=== PATIENT | female | born 2000 ===

== ENCOUNTER 2023-03-08 12:34 | Emergency (ER) | payer OTHER, SELFPAY ==
[2023-03-08 12:38] VITALS: BP 149/97; PULSE 100; RESP 18; TEMP 36.6; O2SAT 100; BMI 37.8
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
[2023-03-08 15:53] VITALS: BP 135/84; PULSE 86; RESP 19; TEMP 36.6; O2SAT 100
== END 2023-03-08 15:56 | disposition home or self-care (01) ==
PROVIDERS: Emergency Provider Emergency Medicine Emergency Medical Services; PCP Registered Nurse
DX: S13.4XXA Sprain of ligaments of cervical spine, initial encounter (principal); M54.2 Cervicalgia; R51.9 Headache, unspecified; V43.52XA Car driver injured in collision with other type car in traffic accident, initial encounter; Y93.9 Activity, unspecified; Y92.410 Unspecified street and highway as the place of occurrence of the external cause; Y99.9 Unspecified external cause status; Z79.899 Other long term (current) drug therapy
CPT/HCPCS: 99283; 99284

== ENCOUNTER 2023-03-12 11:39 | Outpatient (REF) | payer MEDICAID, SELFPAY ==
[2023-03-12 14:30] LABS: Syphilis Screen Nonreactive (Nonreactive)
[2023-03-13 04:22] LABS: HIV AB/AG Nonreactive (Nonreactive); HIV Num 1 0.06 S/CO (0.00-0.99)
[2023-03-13 05:42] LABS: CT PCR DETECTED (Not Detect.); NG PCR NOT DETECTED (Not Detect.)
[2023-03-13 14:17] LABS: BV Int Neg Control Negative (Negative); BV Int Pos Control Positive (Positive)
== END 2023-03-12 11:40 | disposition home or self-care (01) ==
LOC: HO.HHCL 11:39
PROVIDERS: Visit Provider Advanced Practice Midwife
DX: Z11.3 Encounter for screening for infections with a predominantly sexual mode of transmission (principal); Z11.4 Encounter for screening for human immunodeficiency virus [HIV]
CPT/HCPCS: 0353U; 36415; 86780; 87389; 87480; 87510; 87660

== ENCOUNTER 2023-05-31 15:55 | Outpatient (REF) | payer MEDICAID, SELFPAY ==
[2023-05-31 18:33] LABS: CT PCR NOT DETECTED (Not Detect.); NG PCR NOT DETECTED (Not Detect.)
== END 2023-05-31 15:56 | disposition home or self-care (01) ==
LOC: HO.HHCLNP 15:55
PROVIDERS: Visit Provider Advanced Practice Midwife
DX: Z11.3 Encounter for screening for infections with a predominantly sexual mode of transmission (principal)
CPT/HCPCS: 0353U

== ENCOUNTER 2023-06-19 16:11 | Outpatient (REF) | payer MEDICAID, SELFPAY ==
[2023-06-21 15:48] LABS: C. trachomatis RNA TMA DETECTED (NOT DETECTED); Candida glabrata RNA NOT DETECTED (NOT DETECTED); Candida species RNA DETECTED (NOT DETECTED); N. gonorrhoeae RNA TMA NOT DETECTED (NOT DETECTED); Trichomonas vaginalis RNA NOT DETECTED (NOT DETECTED)
== END 2023-06-19 16:12 | disposition home or self-care (01) ==
LOC: HO.HHCLNP 16:11
PROVIDERS: Visit Provider Internal Medicine
DX: N76.0 Acute vaginitis (principal); B96.89 Other specified bacterial agents as the cause of diseases classified elsewhere
CPT/HCPCS: 36415; 81513; 87481; 87491; 87591; 87661

== ENCOUNTER 2023-06-21 16:35 | Outpatient (REF) | payer MEDICAID, SELFPAY ==
[2023-06-22 08:06] LABS: Syphilis Screen Nonreactive (Nonreactive)
[2023-06-22 08:10] LABS: HIV AB/AG Nonreactive (Nonreactive); HIV Num 1 0.05 S/CO (0.00-0.99)
== END 2023-06-21 16:36 | disposition home or self-care (01) ==
LOC: HO.HHCL 16:35
PROVIDERS: Visit Provider Advanced Practice Midwife
DX: Z11.3 Encounter for screening for infections with a predominantly sexual mode of transmission (principal)
CPT/HCPCS: 36415; 86780; 87389

== ENCOUNTER 2023-06-22 14:06 | Outpatient (REF) | payer MEDICAID, SELFPAY ==
[2023-06-22 16:09] LABS: MANUAL DIFF FLAG NO
[2023-06-22 16:18] LABS: Basophils Percent Auto 0.4 % (0-2); Eosinophils Absolute Auto 0.2 X10*3/uL (0.0-0.4); Hematocrit 40.9 % (37.0-47.0); Hemoglobin 13.5 g/dl (12.0-16.0); Imm Gran Abs Auto 0.02 X10*3/uL (0.00-0.03); Imm Gran Pct Auto 0.2 % (0.0-0.4); Lymphocytes Absolute Auto 1.7 X10*3/uL (1.2-4.9); Lymphocytes Percent Auto 17.9 % (20-40); Mean Corpuscular Hemoglobin 30.8 pg (27.0-33.0); Mean Corpuscular Volume 93.2 fL (80.0-98.0); Mean Platelet Volume 10.3 fL (9.4-12.3); Monocytes Absolute Auto 0.7 X10*3/uL (0.1-1.2); Monocytes Percent Auto 7.8 % (2-11); Neutrophils Absolute Auto 6.8 x10*3/uL (2.0-8.3); Neutrophils Percent Auto 71.7 % (45-73); Platelet Count 310 X10*3/uL (160-400); Red Blood Count 4.39 X10*6/uL (4.20-5.50); Red Cell Distribution Width 11.9 % (11.0-16.0); White Blood Count 9.5 X10*3/uL (4.8-10.8)
[2023-06-22 16:28] LABS: Anion Gap 10 (12-20); Blood Urea Nitrogen 14 mg/dL (9-16); Carbon Dioxide 25 mmol/L (22-29); Chloride 110 mmol/L (96-108); Estimated Glomerular Filt Rate > 60; Glucose Random 73 mg/dL (60-115); Potassium 4.1 mmol/L (3.3-5.1); Sodium 141 mmol/L (135-145)
== END 2023-06-22 14:07 | disposition home or self-care (01) ==
LOC: HO.HHCL 14:06
PROVIDERS: Visit Provider Registered Nurse
DX: R19.7 Diarrhea, unspecified (principal)
CPT/HCPCS: 36415; 80048; 85025

== ENCOUNTER 2023-07-20 17:15 | Outpatient (REF) | payer MEDICAID, SELFPAY ==
[2023-07-20 22:08] LABS: CDiff Gene PCR NEGATIVE (Negative)
== END 2023-07-20 17:16 | disposition home or self-care (01) ==
LOC: HO.HHCLNP 17:15
PROVIDERS: Visit Provider Registered Nurse
DX: R19.7 Diarrhea, unspecified (principal)
CPT/HCPCS: 87493

== ENCOUNTER 2023-09-10 09:13 | Emergency (ER) | payer MEDICAID, SELFPAY ==
[2023-09-10 09:23] VITALS: BP 131/82; PULSE 92; RESP 16; TEMP 36.1; O2SAT 97; BMI 37.1
--- NOTE | 2023-09-10 09:33 | ED.GENADULT ---
HPI - General Adult General Chief complaint: Skin/Abscess/Foreign Body Stated complaint: lump on l side of neck Time Seen by Provider: 09/10/23 09:28 Source: patient and RN notes reviewed Mode of arrival: ambulatory Limitations: no limitations History of Present Illness HPI narrative: This is a 23-year-old female, with a history of asthma, presenting to the emergency department complaints of lump to left side of neck since yesterday. Patient states that she noticed a painless lump to her left side of her neck yesterday, she states that this morning at increased in size. Denies history of similar symptoms in the past. She does report that she had night sweats over the weekend. She does report that the pain worsens with deep palpation. Denies any recent changes in weight. She states her mom had a similar lump in her neck and was diagnosed with cancer there were she is concerned. She denies any recent fevers, chills, chest pain, shortness breast, abdominal pain, nausea, vomiting or diarrhea. Denies sore throat or ear pain. Denies dental pain. No other complaints or concerns at this time. MD complaint: Neck lump Onset (ago): day(s) Location: neck Radiation: non-radiation Relieving factors: none Exacerbating factors: none Associated symptoms: denies other symptoms Treatments prior to arrival: none Related Data Previous Rx's Medication Instructions Recorded cyclobenzaprine 10 mg tablet 10 mg PO TID PRN muscle spasm #14 03/08/23 tabs ibuprofen 600 mg tablet 600 mg PO Q8H PRN pain #14 tabs 03/08/23 lidocaine 5 % topical patch 1 patch topical DAILY #15 ea 03/08/23 Allergies Allergy/AdvReac Type Severity Reaction Status Date / Time No Known Allergies Allergy Unverified 04/29/20 16:55 [No Known Allergies*] Review of Systems Review of Systems: Yes all other systems are reviewed and are negative Constitutional: Constitutional: Reports as per [facility] Past Medical History Attestation statement: The following information was validated with the patient. Social History Social History Advance Directives: No Advance Directives Information Provided: No Physical Exam ED Vital Signs: Vital Signs - 24 hr 09/10/23 09:23 Temperature 97.0 F Pulse Rate 92 Respiratory Rate 16 Blood Pressure 131/82 Pulse Oximetry 97 Oxygen Delivery Method Room Air BMI result Body Mass Index 37.1 Const General: cooperative, comfortable and no acute distress Orientation/consciousness: patient oriented x3 Limitations: no limitations HENMT Head: Yes normal to inspection, Yes normocephalic and Yes atraumatic Ears: hearing grossly normal bilaterally General nose exam: Normal external nose present Face and sinus: Yes normal facial exam Mouth: Normal oral and palatal mucosa present, oropharynx normal and moist mucous membranes Throat: Yes posterior oropharynx normal Eyes General: appearance normal, both eyes and all related structures Eyelids: Yes eyelids normal Conjunctivae: conjunctivae normal Sclerae: sclerae normal Pupils: Equal, round and reactive pupils present EOM: EOMs intact bilaterally Neck Other: Left anterior cervical palpable lymph node noted, mobile, nontender Neck: Yes normal visual inspection, Yes full ROM and Yes no lymphadenopathy Lymphatic: no lymphadenopathy noted Chest Chest palpation & inspection: normal inspection of the chest Resp Effort & Inspection: normal respiratory effort and able to speak in complete sentences Auscultation: clear to auscultation bilaterally, no crackles, no rales, no rhonchi and no wheezes Cardio Rate: regular rate Rhythm: regular rhythm Heart sounds: S1 normal heart sound present and S2 normal heart sound present GI Inspection: Yes normal to inspection Skin General skin exam: no rashes or lesions noted Trauma: no lacerations or abrasions Wounds: no wounds Neuro General: patient oriented x3 and moves all extremities Cranial nerves: Yes Equal, round and reactive pupils present Extrem General: Yes normal to inspection Right upper extremity: normal to inspection Left upper extremity: normal to inspection Right lower extremity: normal to inspection Left lower extremity: normal to inspection Course Reevaluation(s) Reevaluation #1: Labs return, patient has mild elevated transaminases, no previous noted for comparison, mild hyperglycemia however patient is nonfasting. TSH is within normal limits, she is not . CBC unremarkable. Discussed findings with patient, advised to closely monitor area and follow-up with primary care physician regarding symptoms. This is likely a lymph node however advised patient to closely monitor this and if any changes occur, to immediately seek emergent care or follow-up with PCP. She understands agrees with plan. Patient stable for discharge. Time: 10:45 Medical Decision Making Medical Decision Making MDM Narrative: This is a 23-year-old female, with a history of asthma, presenting to the emergency department with complaints of lump to left side of neck since yesterday. On arrival, vital signs within normal limits, she is speaking full sentences under no acute distress. Patient does have a palpable anterior lymph node noted, non indurated, no erythema or warmth to suggest cellulitis or abscess. Mother has a history of neck mass that resulted into cancer. Patient reports that she did have night sweats several days ago however reports that this is atypical however. Denies any recent change in weight. She is otherwise feeling well. No headaches, dizziness, dental pain, ear pain, sore throat, fevers, chills, abdominal pain, nausea, vomiting or diarrhea. No other complaints or concerns at this time. Differential Diagnosis Differential Diagnoses: The differential diagnosis associated with the presentation includes Lymphadenopathy, abscess, mass Admission/Observation Consideration of admission/observation: Escalation of care including admission/observation considered Lab Data MDM Lab Attestation statement: I reviewed the patient's lab results. 09/10/23 09:43 09/10/23 09:43 Labs: Lab Results 09/10/23 Range/Units 09:43 WBC 6.0 (4.8-10.8) X10*3/uL RBC 4.37 (4.20-5.50) X10*6/uL Hgb 13.5 (12.0-16.0) g/dl Hct 39.8 (37.0-47.0) % MCV 91.1 (80.0-98.0) fL MCH 30.9 (27.0-33.0) pg MCHC 33.9 (31.0-35.0) g/dl RDW 11.9 (11.0-16.0) % Plt Count 172 D (160-400) X10*3/uL MPV 10.0 (9.4-12.3) fL Immature Gran % (Auto) 0.3 (0.0-0.4) % Neut % (Auto) 49.1 (45-73) % Lymph % (Auto) 44.2 H (20-40) % [facility] % (Auto) 5.3 (2-11) % Eos % (Auto) 0.3 (0-4) % Baso % (Auto) 0.8 (0-2) % Lymph # (Auto) 2.7 (1.2-4.9) X10*3/uL [facility] # (Auto) 0.3 (0.1-1.2) X10*3/uL Eos # (Auto) 0.0 (0.0-0.4) X10*3/uL Baso # (Auto) 0.1 (0.0-0.2) X10*3/uL Abs Immat Gran (auto) 0.02 (0.00-0.03) X10*3/uL Absolute Neuts (auto) 3.0 (2.0-8.3) x10*3/uL Absolute Nucleated RBC 0.000 (0.0-0.012) X10*3/uL Nucleated RBC % (auto) 0.0 (0.0-0.2) /100WBC Smear Tech's Comments VERIFIED Sodium 139 (135-145) mmol/L Potassium 3.6 (3.3-5.1) mmol/L Chloride 108 (96-108) mmol/L Carbon Dioxide 22 (22-29) mmol/L Anion Gap 13 (12-20) BUN 13 (9-16) mg/dL Creatinine 0.80 (0.5-1.4) mg/dL Estim Creat Clear Calc 110.9 Estimated GFR > 60 Random Glucose 119 H (60-115) mg/dL Calcium 8.9 (8.4-10.2) mg/dL Total Bilirubin 0.4 (0.0-1.0) mg/dL AST 34 H (5-31) U/L ALT 51 H (0-31) U/L Alkaline Phosphatase 69 (39-117) U/L Total Protein 7.1 (6.5-8.0) g/dL Albumin 3.9 (3.5-5.0) g/dL TSH 0.93 (0.32-4.0) uIU/mL Beta HCG, Quant < 2 mIU/mL Radiology Impression Discussion of test interpretation with radiology: I have reviewed the radiologist's reading. External Record Review External record reviewed: Inpatient record, Office record, Outpatient record, Prior outpatient labs, Prior outpatient radiology, Primary care record and Outside ED record Discharge Plan Discharge Clinical Impression: Lymphadenopathy, cervical Patient Disposition: Home, Self-Care Instructions: Lymphadenopathy (ED) Additional Instructions: You were seen in the emergency department due to swelling in your left side of your neck. This is likely a swollen node. This times can happen at random occurrences or the start of a infection. You have no signs of infection at this time. Your blood work was reassuring. You do have mild elevation in your liver enzymes, please have these repeated in 2 weeks to ensure improvement. You can have this done through her primary care physician's office. I also want you to follow-up with your primary care physician regarding this visit, please call today to make an appointment. Keep a close eye on region, if your symptoms get worse, you have increased swelling, difficulty breathing, difficulty swallowing, chest pain or shortness of breath, please return for re-evaluation. Prescriptions: No Action cyclobenzaprine 10 mg tablet 10 mg PO TID PRN (Reason: muscle spasm) Qty: 14 0RF ibuprofen 600 mg tablet 600 mg PO Q8H PRN (Reason: pain) Qty: 14 0RF lidocaine 5 % adhesive patch,medicated 1 patch topical DAILY Qty: 15 0RF Rx Instructions: leave on most painful area for up to 12 hrs
[2023-09-10 09:54] LABS: Basophils Absolute Auto 0.1 X10*3/uL (0.0-0.2); Basophils Percent Auto 0.8 % (0-2); Eosinophils Percent Auto 0.3 % (0-4); Hematocrit 39.8 % (37.0-47.0); Hemoglobin 13.5 g/dl (12.0-16.0); Imm Gran Abs Auto 0.02 X10*3/uL (0.00-0.03); Imm Gran Pct Auto 0.3 % (0.0-0.4); Lymphocytes Absolute Auto 2.7 X10*3/uL (1.2-4.9); Lymphocytes Percent Auto 44.2 % (20-40); MANUAL DIFF FLAG SCAN; Mean Corpuscular HGB Conc 33.9 g/dl (31.0-35.0); Mean Corpuscular Hemoglobin 30.9 pg (27.0-33.0); Mean Corpuscular Volume 91.1 fL (80.0-98.0); Monocytes Absolute Auto 0.3 X10*3/uL (0.1-1.2); Monocytes Percent Auto 5.3 % (2-11); Neutrophils Percent Auto 49.1 % (45-73); Platelet Count 172 X10*3/uL (160-400); Red Blood Count 4.37 X10*6/uL (4.20-5.50); Red Cell Distribution Width 11.9 % (11.0-16.0); SCAN SMEAR FLAG 1
[2023-09-10 10:08] LABS: Alanine Aminotransferase 51 U/L (0-31); Albumin Level 3.9 g/dL (3.5-5.0); Alkaline Phosphatase 69 U/L (39-117); Anion Gap 13 (12-20); Aspartate Amino Transferase 34 U/L (5-31); Bilirubin Total 0.4 mg/dL (0.0-1.0); Blood Urea Nitrogen 13 mg/dL (9-16); Calcium 8.9 mg/dL (8.4-10.2); Carbon Dioxide 22 mmol/L (22-29); Chloride 108 mmol/L (96-108); Creatinine Clr Calc Pharmacy 110.9; Estimated Glomerular Filt Rate > 60; Glucose Random 119 mg/dL (60-115); Potassium 3.6 mmol/L (3.3-5.1); Sodium 139 mmol/L (135-145); Total Protein 7.1 g/dL (6.5-8.0)
[2023-09-10 10:20] LABS: SLIDE REVIEW VERIFIED
[2023-09-10 10:31] LABS: HCG Quantitative < 2 mIU/mL; TSH reflex Free T4 0.93 uIU/mL (0.32-4.0)
== END 2023-09-10 11:16 | disposition home or self-care (01) ==
PROVIDERS: Physician Assistant Medical; Emergency Provider Emergency Medicine; PCP Registered Nurse
DX: R59.0 Localized enlarged lymph nodes (principal)
CPT/HCPCS: 36415; 80053; 84443; 84702; 85025; 99282; 99283

== ENCOUNTER 2023-09-17 20:24 | Outpatient (REF) | payer MEDICAID, SELFPAY ==
[2023-09-20 00:08] LABS: C. trachomatis RNA TMA NOT DETECTED (NOT DETECTED); Candida glabrata RNA NOT DETECTED (NOT DETECTED); Candida species RNA DETECTED (NOT DETECTED); N. gonorrhoeae RNA TMA NOT DETECTED (NOT DETECTED); Trichomonas vaginalis RNA NOT DETECTED (NOT DETECTED)
== END 2023-09-17 20:25 | disposition home or self-care (01) ==
LOC: HO.HHCLNP 20:24
PROVIDERS: Visit Provider Registered Nurse
DX: R59.1 Generalized enlarged lymph nodes (principal)
CPT/HCPCS: 36415; 81513; 87481; 87491; 87591; 87661

== ENCOUNTER 2023-09-18 15:58 | Outpatient (REF) | payer MEDICAID, SELFPAY ==
[2023-09-18 17:34] LABS: Basophils Absolute Auto 0.1 X10*3/uL (0.0-0.2); Basophils Percent Auto 1.1 % (0-2); Eosinophils Percent Auto 0.3 % (0-4); Hematocrit 36.5 % (37.0-47.0); Hemoglobin 12.5 g/dl (12.0-16.0); Imm Gran Abs Auto 0.03 X10*3/uL (0.00-0.03); Imm Gran Pct Auto 0.3 % (0.0-0.4); Lymphocytes Absolute Auto 5.8 X10*3/uL (1.2-4.9); Lymphocytes Percent Auto 63.5 % (20-40); MANUAL DIFF FLAG SCAN; Mean Corpuscular HGB Conc 34.2 g/dl (31.0-35.0); Mean Corpuscular Hemoglobin 31.3 pg (27.0-33.0); Mean Corpuscular Volume 91.5 fL (80.0-98.0); Mean Platelet Volume 10.5 fL (9.4-12.3); Monocytes Absolute Auto 0.6 X10*3/uL (0.1-1.2); Neutrophils Absolute Auto 2.6 x10*3/uL (2.0-8.3); Neutrophils Percent Auto 28.8 % (45-73); Platelet Count 203 X10*3/uL (160-400); Red Blood Count 3.99 X10*6/uL (4.20-5.50); Red Cell Distribution Width 12.2 % (11.0-16.0); SCAN SMEAR FLAG 1; White Blood Count 9.1 X10*3/uL (4.8-10.8)
[2023-09-18 17:43] LABS: Alanine Aminotransferase 54 U/L (0-31); Albumin Level 3.4 g/dL (3.5-5.0); Alkaline Phosphatase 82 U/L (39-117); Anion Gap 11 (12-20); Aspartate Amino Transferase 38 U/L (5-31); Bilirubin Total 0.3 mg/dL (0.0-1.0); Blood Urea Nitrogen 13 mg/dL (9-16); Calcium 8.4 mg/dL (8.4-10.2); Carbon Dioxide 23 mmol/L (22-29); Chloride 107 mmol/L (96-108); Estimated Glomerular Filt Rate > 60; Glucose Random 92 mg/dL (60-115); Potassium 3.9 mmol/L (3.3-5.1); Sodium 137 mmol/L (135-145)
[2023-09-18 18:40] LABS: SLIDE REVIEW VERIFIED
[2023-09-19 07:52] LABS: HBS Num1 136.52 mIU/mL (0-7.99); HBc Num1 0.18 S/CO (0.00-0.79); HBsAGNum1 0.42 S/CO (0.00-0.99); HIV AB/AG Nonreactive (Nonreactive); HIV Num 1 0.06 S/CO (0.00-0.99); Hepatitis A Antibody IgM 0.21 Index (0-0.79); Hepatitis B Core Antibody Nonreactive (Nonreactive); Hepatitis B Surface Antigen Negative (Negative); ~HepC Num1 0.34 S/CO (0.00-0.79); ~Hepatitis A Antibody IgM Nonreactive (Nonreactive); ~Hepatitis B Surface Antibody REACTIVE (Nonreactive); ~Hepatitis C Antibody Nonreactive (Nonreactive)
[2023-09-19 17:54] LABS: RPR Rapid Plasma Reagin NON-REACTIVE (NON-REACTIVE)
== END 2023-09-18 15:59 | disposition home or self-care (01) ==
LOC: HO.HHCL 15:58
PROVIDERS: Visit Provider Registered Nurse
DX: Z11.4 Encounter for screening for human immunodeficiency virus [HIV] (principal); R59.1 Generalized enlarged lymph nodes
CPT/HCPCS: 36415; 80053; 85025; 86592; 86704; 86706; 86709; 86803; 87340; 87389

== ENCOUNTER 2023-09-24 11:57 | Outpatient (REF) | payer MEDICAID, SELFPAY ==
[2023-09-27 14:03] LABS: TS Negative Control Passed; TS Panel A 0; TS Panel B 1; TS Positive Control Passed; TSpotTB Negative (Negative)
== END 2023-09-24 11:58 | disposition home or self-care (01) ==
LOC: HO.HHCL 11:57
PROVIDERS: Visit Provider Registered Nurse
DX: R59.1 Generalized enlarged lymph nodes (principal)
CPT/HCPCS: 36415; 86481

== ENCOUNTER 2023-09-24 14:33 | Outpatient (REF) | payer MEDICAID, SELFPAY ==
--- NOTE | ~2023-09-24 | US_ITS ---
EXAMINATION: US SOFT TISSUE HEAD/NECK CLINICAL INFORMATION: 23-year-old female with persistent left anterior cervical lymphadenopathy. COMPARISON: None available. TECHNIQUE: Linear transducer rodriguez-scale and color Doppler examination of the area indicated by patient left neck level II with comparison right neck level II. Targeted ultrasound images were obtained by the retail training manager of the area of concern as indicated by the patient in the left neck at level 2. Radiologist was not in attendance. Images were later provided for interpretation. FINDINGS: Multiple lymph nodes in the area of concern indicated by the patient and the left neck at level II, largest 3.8 x 1.5 x 2.1 cm and 3.5 x 1.1 x 1.9 cm are atypical with cortical thickening and echogenic joce. Lymph nodes in the corresponding area in the right neck at level II, largest 4.4 x 1.0 x 2.0 cm and 2.8 x 1.0 x 2.3 cm, appear atypical with cortical thickening and echogenic joce. US/US soft tiss head and/or neck IMPRESSION: Multiple atypical lymph nodes in the area of concern indicated by the patient in the left neck at level II. Atypical lymph nodes also identified in the corresponding area in the right neck at level II. Decisions regarding further management including possible additional imaging with contrast enhanced CT scan, treatment and/or biopsy should be based on the clinical assessment. Recommend follow-up ultrasound in 3 months.
== END 2023-09-24 14:34 | disposition home or self-care (01) ==
LOC: HO.HMGCX 14:33
PROVIDERS: PCP Registered Nurse; Visit Provider Registered Nurse
DX: R59.1 Generalized enlarged lymph nodes (principal)
CPT/HCPCS: 36415; 76536; 86481

== ENCOUNTER 2023-10-12 07:46 | Outpatient (REF) | payer MEDICAID, SELFPAY ==
--- NOTE | ~2023-10-12 | US_ITS ---
EXAMINATION: US ABDOMEN COMPLETE CLINICAL INFORMATION: 23-year-old female with persistent liver enzyme elevation. COMPARISON: None available. TECHNIQUE: Real-time imaging of the abdominal viscera. Limited visualization due to bowel gas. FINDINGS: PANCREAS: Limited visualization of pancreatic tail and head. Imaged portion of pancreatic body is unremarkable. ABDOMINAL AORTA: Unremarkable. INFERIOR VENA CAVA: Visualized portions are normal. LIVER: Mildly increased hepatic parenchymal heterogeneity and echogenicity could be associated with hepatocellular disease/hepatic steatosis and substantially limits visualization. Correlation with liver function tests and clinical exam recommended to determine further management. GALLBLADDER: No gallstones. No gallbladder wall thickening. COMMON BILE DUCT: Normal in caliber measuring 0.4 cm in diameter. RIGHT KIDNEY: No hydronephrosis. No renal calculi. Limited visualization. The kidney measures 10.5 cm in maximum dimension. LEFT KIDNEY: Medial midpole 1.1 x 1.2 x 1.1 cm cyst with a few thin septations is likely Bosniak II, but is difficult to fully characterize due to limited visualization. Recommend follow-up ultrasound in 6 months. No hydronephrosis or renal calculi. The kidney measures 10.4 cm in maximum dimension. SPLEEN: Normal. The spleen measures 10.3 cm in maximum dimension. FREE FLUID: None. US/US abdomen complete IMPRESSION: 1. Mildly increased hepatic parenchymal heterogeneity and echogenicity could be associated with hepatocellular disease/hepatic steatosis and substantially limits visualization. Correlation with liver function tests and clinical exam recommended to determine further management. 2. Left renal 1.2 cm cyst with a few thin septations is likely Bosniak II, but is difficult to fully characterize due to limited visualization. Recommend follow-up ultrasound in 6 months.
== END 2023-10-12 07:47 | disposition home or self-care (01) ==
LOC: HO.US 07:46
PROVIDERS: PCP Registered Nurse; Visit Provider Registered Nurse
DX: R74.8 Abnormal levels of other serum enzymes (principal)
CPT/HCPCS: 76700

== ENCOUNTER 2023-12-06 09:36 | Outpatient (REF) | payer MEDICAID, SELFPAY ==
[2023-12-06 12:12] LABS: Syphilis Screen Nonreactive (Nonreactive)
[2023-12-06 12:13] LABS: HIV AB/AG Nonreactive (Nonreactive); HIV Num 1 0.06 S/CO (0.00-0.99); ~HepC Num1 0.19 S/CO (0.00-0.79); ~Hepatitis C Antibody Nonreactive (Nonreactive)
[2023-12-07 21:09] LABS: C. trachomatis RNA TMA NOT DETECTED (NOT DETECTED); N. gonorrhoeae RNA TMA NOT DETECTED (NOT DETECTED)
== END 2023-12-06 09:37 | disposition home or self-care (01) ==
LOC: HO.HHCL 09:36
PROVIDERS: Visit Provider Pediatrics
DX: N76.0 Acute vaginitis (principal)
CPT/HCPCS: 36415; 81513; 86780; 86803; 87389; 87491; 87591

== ENCOUNTER 2023-12-24 11:47 | Outpatient (REF) | payer MEDICAID, SELFPAY ==
--- NOTE | ~2023-12-24 | XR_ITS ---
EXAMINATION: XR WRIST, RIGHT CLINICAL INFORMATION: Right wrist pain, patient states one month pain medial side of wrist and lower arm especially with rotation. COMPARISON: None available. TECHNIQUE: Four views of the right wrist. FINDINGS: The bone mineralization is normal. Mild degenerative changes in the first carpometacarpal joint. No displaced fracture appreciated. XR/XR wrist RT min 3V IMPRESSION: 1. Mild degenerative changes in the first carpometacarpal joint. 2. No displaced fracture appreciated. 3. Recommend follow up imaging in 10-14 days if fracture is suspected.
== END 2023-12-24 11:48 | disposition home or self-care (01) ==
LOC: HO.HHCX 11:47
PROVIDERS: Visit Provider Internal Medicine
DX: M25.531 Pain in right wrist (principal)
CPT/HCPCS: 73110

== ENCOUNTER 2024-04-15 17:36 | Outpatient (REF) | payer MEDICAID, SELFPAY | END 2024-04-15 17:37 | disposition home or self-care (01) | LOC: HO.LNP 17:36 | PROVIDERS: Visit Provider Emergency Medicine | DX: R30.0 Dysuria (principal) | CPT/HCPCS: 87086; 87088; 87186 ==

== ENCOUNTER 2024-05-05 | Outpatient (REF) | payer MEDICAID, SELFPAY ==
[2024-05-06 13:10] LABS: Bacterial Vaginosis PCR NEGATIVE (Negative); Candida Group PCR DETECTED (Not Detect); Candida glab krusei PCR NOT DETECTED (Not Detect); Trichomonas vaginalis PCR NOT DETECTED (Not Detect)
[2024-05-06 13:37] LABS: CT PCR NOT DETECTED (Not Detect.); NG PCR NOT DETECTED (Not Detect.)
== END 2024-05-05 00:01 | disposition home or self-care (01) ==
LOC: HO.HHCLNP
PROVIDERS: Visit Provider Family Medicine
DX: N89.8 Other specified noninflammatory disorders of vagina (principal)
CPT/HCPCS: 0352U; 87491; 87591

== ENCOUNTER 2024-06-23 12:16 | Outpatient (REF) | payer MEDICAID, SELFPAY ==
[2024-06-24 14:55] LABS: Bacterial Vaginosis PCR POSITIVE (Negative); Candida Group PCR NOT DETECTED (Not Detect); Candida glab krusei PCR NOT DETECTED (Not Detect); Trichomonas vaginalis PCR NOT DETECTED (Not Detect)
[2024-06-24 15:27] LABS: CT PCR DETECTED (Not Detect.); NG PCR NOT DETECTED (Not Detect.)
== END 2024-06-23 12:17 | disposition home or self-care (01) ==
LOC: HO.HHCLNP 12:16
PROVIDERS: Visit Provider Nurse Practitioner
DX: N89.8 Other specified noninflammatory disorders of vagina (principal)
CPT/HCPCS: 0352U; 87086; 87491; 87591

== ENCOUNTER 2024-06-30 14:28 | Outpatient (REF) | payer MEDICAID, SELFPAY ==
[2024-07-01 03:56] LABS: Syphilis Screen Nonreactive (Nonreactive)
[2024-07-01 04:19] LABS: HIV AB/AG Nonreactive (Nonreactive); HIV Num 1 0.05 S/CO (0.00-0.99); ~HepC Num1 0.21 S/CO (0.00-0.79); ~Hepatitis C Antibody Nonreactive (Nonreactive)
== END 2024-06-30 14:29 | disposition home or self-care (01) ==
LOC: HO.HHCL 14:28
PROVIDERS: Visit Provider Nurse Practitioner
DX: Z11.3 Encounter for screening for infections with a predominantly sexual mode of transmission (principal)
CPT/HCPCS: 36415; 86780; 86803; 87389

== ENCOUNTER 2024-08-27 11:23 | Outpatient (REF) | payer MEDICAID, SELFPAY ==
[2024-08-27 13:51] LABS: Bacterial Vaginosis PCR POSITIVE (Negative); Candida Group PCR NOT DETECTED (Not Detect); Candida glab krusei PCR NOT DETECTED (Not Detect); Trichomonas vaginalis PCR NOT DETECTED (Not Detect)
[2024-08-27 14:21] LABS: CT PCR NOT DETECTED (Not Detect.); NG PCR NOT DETECTED (Not Detect.)
== END 2024-08-27 11:24 | disposition home or self-care (01) ==
LOC: HO.LNP 11:23
PROVIDERS: Visit Provider Internal Medicine
DX: L98.491 Non-pressure chronic ulcer of skin of other sites limited to breakdown of skin (principal); Z11.3 Encounter for screening for infections with a predominantly sexual mode of transmission
CPT/HCPCS: 81515; 87491; 87591

== ENCOUNTER 2025-03-24 15:11 | Outpatient (REF) | payer MEDICAID, SELFPAY ==
--- OUTSIDE RECORDS SUMMARY | 2025-03-24 14:15 | XMS_ITS | Encounter Summary ---
Author Organization [employer] Address [address] [place] [address] Care Team Providers Care Pipeline Superintendent Name Role Phone Tamra Knowles TOUCH UP PAINTER Primary Care Provider [phone] Reason for Visit * Reason Comments pap Encounter Details Date Type Department Care Team (Latest Contact Info) Description 03/24/2025 2:15 PM EDT Procedure Visit [facility] [address], [place] [phone] Camilla Thacker CNM [address], [place] [phone] Cervical cancer screening (Primary Dx); Screening examination for venereal disease; Checking subdermal contraceptive Social History Tobacco Use Types Packs/Day Years Used Date Smoking Tobacco: Never Passive Smoke Exposure: Past Smokeless Tobacco: Never Tobacco Cessation:Counseling Given: Not Answered Alcohol Use Standard Drinks/Week Comments Never 0 (1 standard drink = 0.6 oz pur e alcohol) Depression Answer Date Recorded Patient Health Questionnaire-9 Score 7 06/22/2023 Patient Health Questionnaire-9 Score 7 06/22/2023 Last PHQ-9: Questionnaire Data Not on file 1 08/22/2022 Housing Stability Answer Date Recorded What is your housing situation today? I have priyanka laurent 11/30/[address] you li ve. Do you have problems with any of the following? None of the above 11/30/2023 Food Insecurity Answer Date Recorded Within the past 12 months, y ou worried that your food would run out before you got money to buy more: Never True 11/30/2023 Within the past 12 months,th e food you bought just didn't last and you didn't have enough money to get more: Never True Transportation Answer Date Recorded In the past 12 months, has l ack of transportation kept you from medical appts, meetings, work or from getting things needed for daily living? No 11/30/2023 Utilities Answer Date Recorded In the past 12 months, has t he electric, gas, oil or water company threatened to shut off services in your home? No 11/30/2023 Depression Answer Date Recorded Patient Health Questionnaire-2 Score 2 03/24/2025 Internet Access Answer Date Recorded Internet Access Q1 Yes 09/03/2024 Internet Access Q2 Not on file 09/03/2024 Comments No Intention Date Recorded No desire to become (finding) 0 03/24/2025 Sex and Gender Information Value Date Recorded Sex Assigned at Female 06/12/2022 10:17 AM EDT Legal Sex Female 10:17 AM EDT Gender Identity Female 06/12/2022 10:17 AM EDT Sexual Orientation Straight 06/12/2022 10 :17 AM EDT documented as of this encounter Last Filed Vital Signs Vital Sign Reading Time Taken Comments Blood Pressure 122/68 03/24/2025 2:39 PM EDT Pulse 75 03/24/2025 2:39 PM EDT Temperature 37.2 C (98.9 F) 03/24/2025 2:39 PM EDT Respiratory Rate 14 03/24/2025 2:39 PM EDT Oxygen Saturation 98% 03/24/2025 2:39 PM EDT Inhaled Oxygen Concentration - - Weight 70.4 kg (155 lb 3.2 oz) 03/24/2025 2:39 P M EDT Height - - Body Mass Index 29.32 08/26/2024 6:00 PM EST documented in this encounter Functional Status * Over the past 2 weeks, how often have you been bothered by any of the following problems? Question Answer Date of Assessment Author Patient Health Questionnaire-2 Score 2 03/13 2:43 PM EDT Celina Capellan MA * Little interest or pleasure in doing things Answer Date of Assessment Author Several days 03/24/2025 2:43 PM EDT Celina Capellan MA * Feeling down, depressed, or hopeless Answer Date of Assessment Author Several days 03/24/2025 2:43 PM EDT Celina Capellan MA * Trouble falling or staying asleep, or sleeping too much Answer Date of Assessment Author Several days 03/24/2025 2:43 PM EDT Celina Capellan MA * Feeling tired or having little energy Answer Date of Assessment Author Several days 03/24/2025 2:43 PM EDT Celina Capellan MA * Poor appetite or overeating Answer Date of Assessment Author More than half the days 03/24/2025 2:43 PM EDT Celina Quispe MA * Feeling bad about yourself - or that you are a failure or have let yourself or your family down Answer Date of Assessment Author Several days 03/24/2025 2:43 PM EDT Celina Capellan MA * Trouble concentrating on things, such as reading the newspaper or watching television Answer Date of Assessment Author More than half the days 03/24/2025 2:43 PM EDT Celina Quispe MA * Moving or speaking so slowly that other people could have noticed? Or the opposite - being so fidgety or restless that you have been moving around a lot more than usual. Answer Date of Assessment Author Several days 03/24/2025 2:43 PM EDT Celina Capellan MA documented as of this encounter Progress Notes * Camilla Thacker CNM - 03/24/2025 2:15 PM EDT Subjective Patient ID: Oly Duran is a 24 y.o. female who presents for pap Had medication termination and Nexplanon placed last month at . Feeling good about decision. Not planning in the next year. Some spotting off/on recently, but largely amenorrheic since termination bleeding resolved. No longer feels . 3 AMAB partners/3 months. Vaginal/oral sex. No safety concerns, happy with sex life. Would like full STI testing today. Pap NIL 02/2022. Treated for chlamydia and bacterial vaginosis 02/2023. Retest for chlamydia negative. Hep B immunized. Known genital HSV 1. Gonorrhea/Chlamydia/trichomonas neg 08/2024, treated for bacterial vaginosis. Notes occasional vulvar itch, not today. Review of Systems Genitourinary: Negative for dyspareunia, dysuria, frequency, genital sores, hematuria, menstrual problem, pelvic pain, urgency, vaginal bleeding, vaginal discharge and vaginal pain. No abnormal pap, no abnormal bleeding, no breast pain, no breast mass, no nipple discharge Objective BP 122/68 (BP Location: Right arm, Patient Position: Sitting, BP Cuff Size: Adult) Pulse 75 Temp 98.9 ??F (37.2 ??C) (Oral) Resp 14 Wt 155 lb 3.2 oz (70.4 kg) SpO2 98% BMI 29.32 kg/m?? 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 Constitutional: Appearance: Normal appearance. Genitourinary: General: Normal vulva. Labia: Right: No rash, tenderness, lesion or injury. Left: No rash, tenderness, lesion or injury. Vagina: Normal. No signs of injury and foreign body. No vaginal discharge, erythema, tenderness, bleeding or lesions. Cervix: No cervical motion tenderness, discharge, friability, lesion, erythema, cervical bleeding or eversion. Uterus: Normal. Not enlarged and not tender. Adnexa: Right adnexa normal and left adnexa normal. Right: No mass, tenderness or fullness. Left: No mass, tenderness or fullness. Skin: Comments: Nexplanon palpable in left arm, site well healed Neurological: Mental Status: She is alert. Psychiatric: Mood and Affect: Mood normal. Behavior: Behavior normal. Assessment/Plan Diagnoses and all orders for this visit: Cervical cancer screening - Pap Smear Pap today. Repeat 3 y if normal. Will contact with results. Screening examination for venereal disease - STI testing add on (NG, [place], Trich) - Chlamydia/N. Gonorrhoeae RNA, TMA, Throat; Future - Syphilis Screen; Future - HIV-1/2 Antigen and Antibodies, Fourth Generation, with Reflexes; Future Oral Gonorrhea/Chlamydia, pap based STI testing and serum labs ordered. Discussed PrEP and DoxyPEP.Declines both, aware she can contact office any time if interested. Advised STI testing with new partners. Reviewed HSV 1 prevalence, episodic vs suppressive treatment. Rare outbreaks, will observe for now. Checking subdermal contraceptive Expect irregular bleeding, or less likely, no bleeding at all. Report if implant not palpable. Reviewed that Nexplanon is FDA approved for 3y, but research supports extended use up to 5 years. documented in this encounter Plan of Treatment Upcoming Encounters Date Type Department Care Team (Late st Contact Info) Description 04/17/2025 2:00 PM EDT Office Visit [facility] [address] [place] [phone] Tamra Knowles FNP [address] [place] [address] Scheduled Orders Name Type Priority Associated Diagnoses Order Schedule Pap Smear Pathology and Cytology Routine Cervical cancer screening Ordered: 03/24/2025 STI testing add on (NG, CT, Trich) Pathology and Cytology Routine Screening examination for venereal disease Ordered: 03/24/2025 Chlamydia/N. Gonorrhoeae RNA, TMA, Throat Microbiology Routine Screening examination for venereal disease Expected: 03/24/2025 (Approximate), Expires: 03/24/2026 Syphilis Screen Lab Routine Screening examination for venereal disease Expected: 03/24/2025 (Approximate), Expires: 03/24/2026 HIV-1/2 Antigen and Antibodies, Fourth Generation, with Reflexes Lab Routine Screening examination for venereal disease Expected: 03/24/2025 (Approximate), Expires: 03/24/2026 documented as of this encounter Visit Diagnoses Diagnosis Cervical cancer screening- Primary Screening for malignant neoplasm of the cervix Screening examination for venereal disease Checking subdermal contraceptive Surveillance of previously prescribed implantable subdermal contraceptive documented in this encounter Additional Health Concerns Assessment Noted Time PHQ-9 Depression Total Score: 7 06/22/20 23 1:35 PM EST documented as of this encounter Care Teams Pipeline Superintendent Relationship Specialty Start Date End Date Tamra Knowles FNP [address] [place] [id number] PCP - General Family Medicine 04/09/22 documented as of this encounter
[2025-03-25 03:48] LABS: Syphilis Screen Nonreactive (Nonreactive)
[2025-03-25 03:49] LABS: Syphilis Screen Nonreactive (Nonreactive)
[2025-03-25 04:17] LABS: HIV Num 1 0.05 S/CO (0.00-0.99)
[2025-03-25 04:21] LABS: HBS Num1 74.07 mIU/mL (0-7.99); HBc Num1 0.06 S/CO (0.00-0.79); HBsAGNum1 0.42 S/CO (0.00-0.99); HIV Num 1 0.06 S/CO (0.00-0.99); Hepatitis A Antibody IgM 0.19 Index (0-0.79); Hepatitis B Surface Antigen Negative (Negative); ~HepC Num1 0.14 S/CO (0.00-0.79); ~Hepatitis A Antibody IgM Nonreactive (Nonreactive); ~Hepatitis B Surface Antibody REACTIVE (Nonreactive); ~Hepatitis C Antibody Nonreactive (Nonreactive)
[2025-03-26 20:48] LABS: C. trachomatis RNA TMA NOT DETECTED (NOT DETECTED); N. gonorrhoeae RNA TMA NOT DETECTED (NOT DETECTED)
[2025-03-26 22:43] LABS: Trichomonas (NAAT) NOT DETECTED (NOT DETECTED)
[2025-03-28 09:54] LABS: C. Trachomatis RNA TMA, Throat NOT DETECTED; N. gonorrhoeae RNA TMA, Throat NOT DETECTED
== END 2025-03-24 15:12 | disposition home or self-care (01) ==
LOC: HO.HHCL 15:11
PROVIDERS: Internal Medicine; PCP Registered Nurse; Visit Provider Advanced Practice Midwife
DX: Z12.4 Encounter for screening for malignant neoplasm of cervix (principal); Z11.3 Encounter for screening for infections with a predominantly sexual mode of transmission; Z11.59 Encounter for screening for other viral diseases; Z11.4 Encounter for screening for human immunodeficiency virus [HIV]; Z11.8 Encounter for screening for other infectious and parasitic diseases; A60.1 Herpesviral infection of perianal skin and rectum; B37.31 Acute candidiasis of vulva and vagina
CPT/HCPCS: 36415; 84702; 86704; 86706; 86709; 86780; 86803; 87340; 87389; 87491; 87591; 87661; 88175